=== PATIENT | female | born 1985 | race Caucasian/White ===

== ENCOUNTER 2019-10-13 08:24 | Inpatient (IN) | payer BC ==
[2019-10-13] MEDS ORDERED: Lidocaine 1% (PF) 30 ML VIAL ONE (08:30)
[2019-10-13] MEDS ORDERED: NS / Oxytocin 40 units/1000ml 1,000 ML ONE (08:30)
[2019-10-13] MEDS ORDERED: Penicillin G Potassium 5 MILL.UNITS VIAL ONE (08:31)
[2019-10-13] MEDS ORDERED: Oxytocin 10 UNITS/ML VIAL ONE (08:33)
[2019-10-13] MEDS ORDERED: Methylergonovine 0.2 MG/ML VIAL IM PRN (08:54)
[2019-10-13] MEDS ORDERED: Diphenoxylate HCl/Atropine Tablet PO PRN ×2 (08:54)
[2019-10-13] MEDS ORDERED: hydrALAZINE 20 MG/ML VIAL SLOW IVP PRN ×2 (08:54→09:18)
[2019-10-13] MEDS ORDERED: Ondansetron PF 4 MG/2 ML Vial IVP PRN ×2 (08:54→09:18)
[2019-10-13] MEDS ORDERED: Ibuprofen 800 MG TAB PO PRN (08:54)
[2019-10-13] MEDS ORDERED: NS / Oxytocin 40 units/1000ml 1,000 ML IV PRN (08:54)
[2019-10-13] MEDS ORDERED: HYDROcodone/Acetaminophen 5/325 mg Tablet PO PRN ×2 (08:54)
[2019-10-13] MEDS ORDERED: Lidocaine 1% (PF) 30 ML VIAL SC PRN (08:54)
[2019-10-13] MEDS ORDERED: Promethazine HCl 25 MG/ML VIAL IM PRN (08:54)
[2019-10-13] MEDS ORDERED: Misoprostol 200 MCG TAB PR PRN (08:54)
[2019-10-13] MEDS ORDERED: Carboprost 250 MCG/ML AMP IM PRN (08:54)
[2019-10-13] MEDS ORDERED: Penicillin G Potassium 5 MILL.UNITS in Sodium Chloride 0.9% 100 ML IVPB SCH (09:00)
[2019-10-13] MEDS ORDERED: Lactated Ringer's 1,000 ML IV SCH (09:00)
[2019-10-13 09:02] LABS: Hemoglobin 11.8 g/dL (12.0-16.0); Mean Corpuscular HGB CONC 33.5 g/dL (32.0-36.0); Mean Corpuscular Hemoglobin 27.9 pg (27.0-31.0); Mean Corpuscular Volume 83.5 fL (78.0-98.0); Mean Platelet Volume 10.9 fL (7.4-10.4); Platelet Count 241 thou/uL (130-400); RBC Distribution Width 14.6 % (11.5-14.5); Red Blood Cell (RBC) Count 4.21 mill/uL (4.20-5.40); White Blood Cell (WBC) Count 12.7 thou/uL (4.8-10.8)
[2019-10-13] MEDS ORDERED: Acetaminophen/Codeine 30-300mg Tablet PO PRN (09:18)
[2019-10-13] MEDS ORDERED: diphenhydrAMINE 25 MG CAP PO PRN (09:18)
[2019-10-13] MEDS ORDERED: Bisacodyl 10 MG SUPP PR PRN (09:18)
[2019-10-13] MEDS ORDERED: Lanolin Ointment 7 GM TUBE TOP PRN (09:18)
[2019-10-13] MEDS ORDERED: Adacel (T-DAP) 0.5 ML SYRINGE IM ONE (09:18)
[2019-10-13] MEDS ORDERED: Benzocaine-Menthol 82.5 ML CAN TOP PRN (09:18)
[2019-10-13] MEDS ORDERED: Milk Of Magnesia 30 ML UDCUP PO PRN (09:18)
[2019-10-13] MEDS ORDERED: Preparation H Ointment 28 GM TUBE PR PRN (09:18)
[2019-10-13] MEDS ORDERED: Zolpidem Tartrate 5 MG TAB PO PRN (09:18)
[2019-10-13] MEDS ORDERED: Misoprostol 200 MCG TAB VAG PRN (09:18)
[2019-10-13] MEDS ORDERED: NS / Oxytocin 40 units/1000ml 1,000 ML IV SCH (09:30)
[2019-10-13 09:40] VITALS: BMI 42.3
[2019-10-13 09:45] LABS: Syphilis Antibody Nonreactive (Nonreactive); Syphilis Antibody Index 0.07 S/CO (<1.00 Non-Reactive)
[2019-10-13 09:46] LABS: Hep B Surf Ag Non-Reactive S/CO (NonReactive)
[2019-10-13] MEDS ORDERED: Penicillin G 2.5 MILL.units 2.5 MILL.UNITS in Premix Bag 1 BAG IVPB SCH (13:00)
[2019-10-13] MEDS: Ibuprofen 800 MG TAB PO SCH ×2 (14:01→21:31)
[2019-10-13] MEDS: Acetaminophen/Codeine 30-300mg Tablet PO PRN ×2 (15:35→21:30)
[2019-10-13] MEDS: Ferrous Sulfate 325 MG TAB PO SCH (17:10)
[2019-10-13] MEDS: Docusate Calcium (SURFAK) 240 MG CAP PO SCH (21:30)
[2019-10-14] MEDS: Ibuprofen 800 MG TAB PO SCH ×3 (06:12→21:14)
[2019-10-14 06:21] LABS: Hemoglobin 9.2 g/dL (12.0-16.0); Mean Corpuscular HGB CONC 32.7 g/dL (32.0-36.0); Mean Corpuscular Hemoglobin 27.4 pg (27.0-31.0); Mean Corpuscular Volume 83.9 fL (78.0-98.0); Mean Platelet Volume 10.6 fL (7.4-10.4); Platelet Count 184 thou/uL (130-400); RBC Distribution Width 14.5 % (11.5-14.5); Red Blood Cell (RBC) Count 3.36 mill/uL (4.20-5.40)
[2019-10-14] MEDS: Prenatal Vitamin 1 TAB PO SCH (08:46)
[2019-10-14] MEDS: Ferrous Sulfate 325 MG TAB PO SCH ×2 (08:46→17:29)
[2019-10-14] MEDS: Docusate Calcium (SURFAK) 240 MG CAP PO SCH ×2 (08:46→21:13)
[2019-10-15] MEDS: Ibuprofen 800 MG TAB PO SCH ×2 (06:09→13:43)
[2019-10-15 08:42] VITALS: TEMP 98.2
[2019-10-15] MEDS: Prenatal Vitamin 1 TAB PO SCH (09:05)
[2019-10-15] MEDS: Docusate Calcium (SURFAK) 240 MG CAP PO SCH (09:06)
[2019-10-15] MEDS: Ferrous Sulfate 325 MG TAB PO SCH (09:07)
[2019-10-15 14:00] VITALS: BP 143/70
== END 2019-10-15 18:56 | disposition home or self-care (01) | DRG 807 ==
LOC: L&D/OP 08:24 → L&D 08:25 → 3SE 11:18
PROVIDERS: ADMIT Obstetrics & Gynecology; ATTEND Obstetrics & Gynecology
PROC: 10E0XZZ Delivery of Products of Conception, External Approach (ICD-10-PCS; principal; 2019-10-13)
DX: O24.420 Gestational diabetes mellitus in childbirth, diet controlled (principal); Z37.0 Single live birth; O99.02 Anemia complicating childbirth; D64.9 Anemia, unspecified; O99.824 Streptococcus B carrier state complicating childbirth; Z3A.39 39 weeks gestation of pregnancy
CPT/HCPCS: 36415; 85027; 86780; 86850; 86900; 86901; 87340; J2001; J2540; J2590; J3490